=== PATIENT | male | born 1950 | race African-American/Black ===

== ENCOUNTER 2025-02-16 12:39 | Emergency (ER) | payer MEDICARE, MEDICAID ==
[~2025-02-16] VITALS: Ht 182.9 cm; Wt 95.0 kg
[2025-02-16 12:41] VITALS: O2SAT 99
[2025-02-16 13:08] LABS: BASOPHILS % 0.2 % (0.0-2.0); EOSINOPHILS % 0.6 % (0.0-5.0); HEMATOCRIT. 29.8 % (42.0-52.0); HEMOGLOBIN. 10.3 g/dL (14.0-18.0); LYMPHOCYTES % 35.2 % (20.0-50.0); MEAN CORPUSCULAR HEMOGLOBIN 31.9 pg (28.0-32.0); MEAN CORPUSCULAR HGB CONC 34.5 g/dL (31.0-37.0); MEAN CORPUSCULAR VOLUME 92.4 fL (80.0-94.0); MEAN PLATELET VOLUME 6.5 fl (7.4-10.4); MONOCYTES % 8.2 % (2.0-8.0); NEUTROPHILS % 55.8 % (40.0-76.0); PLATELET 331 x1000/uL (130-400); RED BLOOD CELL COUNT 3.23 mill/uL (4.7-6.1); RED CELL DISTRIBUTION WIDTH 14.2 % (11.6-14.6); WHITE BLOOD COUNT 10.3 x1000/uL (4.5-11.0)
[2025-02-16 13:15] LABS: CHLORIDE 106 mEq/L (98-107); POTASSIUM 3.8 mEq/L (3.5-5.1); SODIUM 134 mEq/L (136-145)
[2025-02-16 13:16] LABS: CALCIUM 8.6 mg/dL (8.7-10.4); CARBON DIOXIDE 23 mEq/L (21-32)
[2025-02-16 13:21] LABS: CREATININE 1.2 mg/dL (0.6-1.3); GLUCOSE 162 mg/dL (70-105); UREA NITROGEN BLOOD 20 mg/dL (9-23)
[2025-02-16 13:22] LABS: ALANINE AMINOTRANSFERASE 34 IU/L (10-49); ASPARTATE AMINOTRANSFERASE 43 IU/L (<34)
[2025-02-16 13:23] LABS: BILIRUBIN TOTAL 0.5 mg/dL (0.1-1.0); PROTEIN TOTAL 9.2 g/dL (6.0-8.3)
[2025-02-16] MEDS: PANTOPRAZOLE SODIUM 40 MG/VIAL IV ONE (13:40)
[2025-02-16] MEDS: LACTATED RINGERS 500 ML IV SCH (13:40)
[2025-02-16] MEDS: METOCLOPRAMIDE HCL 10MG/2ML VIAL IV ONE (13:40)
[2025-02-16] MEDS: PANTOPRAZOLE 80 MG in SODIUM CHLORIDE 0.9% 100 ML IV SCH (13:59)
[2025-02-16 15:10] VITALS: BP 130/74; PULSE 90; RESP 21; TEMP 36.7; O2SAT 95
== END 2025-02-16 15:53 | disposition left against medical advice (07) ==
LOC: ER 12:39
DX: R11.2 Nausea with vomiting, unspecified (principal); I10 Essential (primary) hypertension
CPT/HCPCS: 99284; 96365; 96375; 80053; 83690; 85025; 86850; 86900; 86901; 36415; 93005; J2765; J2470; J7050